=== PATIENT | female | born 1975 | race Caucasian/White ===

== ENCOUNTER 2017-09-30 16:26 | Emergency (ER) | payer BC, OTHER ==
[~2017-09-30] VITALS: Ht 160 cm; Wt 72.3 kg
[2017-09-30 16:29] VITALS: TEMP 37; Ht 160 cm; Wt 72.3 kg
[2017-09-30 16:59] VITALS: O2SAT 97
[2017-09-30 17:06] LABS: HEMATOCRIT 40.8 % (37-47); MEAN CELL VOLUME 90.7 fL (80-100); MEAN CORPUSCULAR HEMOGLOBIN 31.1 pg (25-34); MEAN CORPUSCULAR HGB CONC 34.3 g/dl (32-36); MEAN PLATELET VOLUME 9.7 fL (7.4-10.4); PLATELET COUNT 360 K/uL (130-400); RED CELL DISTRIBUTION WIDTH CV 13.7 % (11.5-14.5); WHITE BLOOD COUNT 9.98 K/uL (4.8-10.8)
--- NOTE | 2017-09-30 17:18 | EMERGENCY ROOM VISIT NOTE ---
History Report prepared by Rm: Humza Caballero Under the Supervision of: Dr. Tosin Ward D.O. First contact with patient: 16:54 Chief Complaint: CHEST PAIN Stated Complaint: SHARP LT SIDE PAIN, BLOOD WORK Nursing Triage Summary: Patient c/o sharp left upper abdominal/chest pain under ribs. Denies N/V/D Patient recently traveled to and from [facility]. Seen by Erica Kaplan PA-C and sent for evaluation. History of Present Illness The patient is a 42 year old female who presents to the Emergency Room with complaints of worsening left side chest pain starting this morning. She describes the pain as a piercing pain, and she states that the pain is worsened with bending over and deep breathing. The patient states that it was okay earlier in the morning, and she ate lunch and afterwards it was much worse. She notes that she went to her PCP this morning, and they thought it was musculoskeletal, though she states that she recently drove 15 hours, and she is worried about a blood clot. She has a history of colitis, though she states that this pain is different than usual. The patient states that she currently feels hot, and she states that she has been having some post nasal drip. She denies any nausea, vomiting, leg swelling, back pain, any thyroid problems, and any family history of heart disease at a young age. The patient states that she took two Tylenol for the pain, and it did not really help. She additionally notes that she had a root canal performed a week ago. Source of History: patient Onset: this morning Position: chest (left) Quality: other (piercing) Timing: worsening Modifying Factors (Worsening): other (bending over and deep breathing) Associated Symptoms: No nausea, No vomiting, No back pain Review of Systems See HPI for pertinent positives & negatives. A total of 10 systems reviewed and were otherwise negative. Past Medical & Surgical Medical Problems: (1) Dermatitis (2) Psoriatic arthropathy Surgical Problems: (1) History of dental surgery Social History Smoking Status: Never Smoker Marital Status: Occupation Status: employed Current/Historical Medications Scheduled Control Pills ( Control Pills), 1 TAB PO DAILY Allergies Coded Allergies: No Known Allergies (Verified , 09/30/17) Physical Exam Vital Signs Date Time Temp Pulse Resp B/P (MAP) Pulse Ox O2 Delivery O2 Flow Rate FiO2 09/30/17 20:42 66 17 145/84 98 09/30/17 19:28 70 09/30/17 16:59 98 Room Air 09/30/17 16:59 97 Room Air 09/30/17 16:33 Room Air 09/30/17 16:29 37.0 83 16 176/95 95 Room Air Physical Exam GENERAL: alert, well appearing, well nourished, no distress, non-toxic EYE EXAM: normal conjunctiva, PERRL and EOM's grossly intact OROPHARYNX: no exudate, no erythema, lips, buccal mucosa, and tongue normal and mucous membranes are moist NECK: supple, no nuchal rigidity, no adenopathy, non-tender LUNGS: Clear to auscultation. No wheezes rhonchi and rales. Normal chest wall mechanics HEART: no murmurs, S1 normal and S2 normal CHEST: Pain along the left costal margin. ABDOMEN: abdomen soft, non-tender, normo-active bowel sounds, no masses, no rebound or guarding. BACK: Back is symmetrical on inspection and there is no deformity, no midline tenderness, no CVA tenderness. SKIN: no rashes and no bruising UPPER EXTREMITIES: upper extremities are grossly normal. LOWER EXTREMITIES: No pitting edema. NEURO EXAM: Normal sensorium, cranial nerves II-XII grossly intact, normal speech, no gross weakness of arms, no gross weakness of legs. Medical Decision & Procedures ER Provider Diagnostic Interpretation: Radiology results have been interpreted by the radiologist and reviewed by me. CHEST ONE VIEW PORTABLE HISTORY: 42 years-old Female chest pain acute atypical chest pain COMPARISON: None available TECHNIQUE: Portable AP view of the chest FINDINGS: Cardiomediastinal and hilar silhouettes are within normal limits. There is no pneumothorax or pleural effusion. Subsegmental left basilar opacities are noted. No lobar airspace consolidation or overt pulmonary edema. The bones of the chest appear grossly intact. IMPRESSION: Subsegmental left basilar opacities favor atelectasis. The above report was generated using voice recognition software. It may contain grammatical, syntax or spelling errors. Electronically signed by: Jefferson Meeks M.D. 09/30/2017 5:16 PM Dictated Date/Time: 09/30/2017 5:[address] ANGIOGRAM OF THE CHEST CLINICAL HISTORY: Atypical chest pain. COMPARISON STUDY: Chest x-ray dated 09/30/2017. TECHNIQUE: Following the IV administration of 85 cc of Optiray 320, CT angiogram of the chest was performed from the upper abdomen to the thoracic inlet utilizing the pulmonary embolus protocol. Images are reviewed in the axial, sagittal, and coronal planes. 3-D MIPS images are created and assessed. IV contrast was administered without complication. A dose lowering technique was utilized adhering to the principles of ALARA. CT DOSE: 333.16 mGycm FINDINGS: Thyroid: Imaged portions of the thyroid gland are normal in size and attenuation. Thoracic aorta: The thoracic aorta is normal in caliber and demonstrates standard 3-vessel arch anatomy. No dissection is seen. Pulmonary vasculature: The pulmonary trunk is normal in caliber. There are no filling defects identified in main, lobar, or segmental pulmonary branches to suggest pulmonary embolus. Heart: The heart is normal in size and configuration, and without pericardial effusion. Lungs and pleural spaces: Evaluation of lung parenchyma is modestly degraded by motion artifact. No airspace consolidation or pleural effusion is identified. There is dependent atelectasis. The trachea and central airways are clear. Mediastinum: There is no mediastinal lymphadenopathy. Ciara: Clear. Axillae: There is no axillary lymphadenopathy. Upper abdomen: There are at least 5 low-attenuation hepatic lesions identified. The largest measures up to 3.3 cm. These are seen in the left lobe on images #4, #20, and #52 and in the right lobe on images #49 and #31. Punctate nonobstructing calculi are seen in the upper pole of the left kidney. Skeletal structures: No lytic or blastic bony lesions are seen. IMPRESSION: 1. There is no evidence of pulmonary embolus in the main, lobar, or segmental pulmonary arteries. 2. The lungs are clear. 3. There are least 5 low-attenuation hepatic lesions measuring up to 3.3 cm. These are pathologically indeterminant, and could potentially represent hemangiomas. Follow-up with a nonemergent contrast-enhanced MRI of the liver is recommended for further assessment. Electronically signed by: Shorty Kennedy M.D. 09/30/2017 6:35 PM Dictated Date/Time: 09/30/2017 6:30 PM Laboratory Results 09/30/17 15:45 09/30/17 15:45 Test 09/30/17 15:45 09/30/17 16:59 09/30/17 19:34 Red Blood Count 4.50 M/uL (4.2-5.4) Mean Corpuscular Volume 90.7 fL (80-100) Mean Corpuscular Hemoglobin 31.1 pg (25-34) Mean Corpuscular Hemoglobin Concent 34.3 g/dl (32-36) RDW Standard Deviation 45.0 fL (36.4-46.3) RDW Coefficient of Variation 13.7 % (11.5-14.5) Mean Platelet Volume 9.7 fL (7.4-10.4) Prothrombin Time 9.3 SECONDS (9.0-12.0) Prothromb Time International Ratio 0.9 (0.9-1.1) Activated Partial Thromboplast Time 25.0 SECONDS (21.0-31.0) Partial Thromboplastin Ratio 1.0 D-Dimer 760 ug/L FEU (0-500) Anion Gap 8.0 mmol/L (3-11) Est Creatinine Clear Calc Drug Dose 90.4 ml/min Estimated GFR () 109.4 Estimated GFR (Non- 94.4 BUN/Creatinine Ratio 16.8 (10-20) Calcium Level 9.0 mg/dl (8.5-10.1) Total Bilirubin 0.2 mg/dl (0.2-1) Aspartate Amino Transf (AST/SGOT) 16 U/L (15-37) Alanine Aminotransferase (ALT/SGPT) 31 U/L (12-78) Alkaline Phosphatase 83 U/L (45-117) Total Creatine Kinase 120 U/L (26-192) Creatine Kinase MB 2.0 ng/ml (0.5-3.6) Creatine Kinase MB Ratio 1.7 (0-3.0) Total Protein 7.8 gm/dl (6.4-8.2) Albumin 3.6 gm/dl (3.4-5.0) Globulin 4.2 gm/dl (2.5-4.0) Albumin/Globulin Ratio 0.9 (0.9-2) Bedside D-Dimer > 450 ng/mlFEU (0-450) Bedside Troponin I < 0.030 ng/ml (0-0.045) Laboratory results per my review. Medications Administered Medications (Trade) Dose Ordered Sig/Jakob Route Start Time Stop Time Status Last Admin Dose Admin Fentanyl Citrate (Fentanyl Inj) 50 mcg NOW STAT IV 09/30/17 17:33 09/30/17 17:34 DC 09/30/17 17:54 50 MCG Ketorolac Tromethamine (Toradol Inj) 30 mg NOW STAT IV 09/30/17 19:04 09/30/17 19:05 DC 09/30/17 19:21 30 MG Famotidine (Pepcid 20mg Iv Push) 20 mg ONE STAT IV 09/30/17 19:04 09/30/17 19:05 DC 09/30/17 19:25 20 MG ECG Per My Interpretation Indication: chest pain Rate (beats per minute): 72 Rhythm: sinus rhythm Findings: RBBB (borderline), no acute ischemic change, no ectopy, other ( Normal axis. No evidence for right heart strain.) ED Course 1653: The patient was evaluated in room A2. A complete history and physical exam was performed. The patient's outpatient office note was reviewed. 1732: Fentanyl 50mcg IV 1903: Famotidine 20mg IV, Toradol 30mg IV 1906: I reevaluated the patient, and I updated her on the results. 1934: Upon reevaluation, the patient is feeling better. I discussed the findings and the treatment plan with the patient. She verbalizes agreement and understanding. She was discharged home. Medical Decision Differential diagnosis: Etiologies such as cardiac ischemia, aortic dissection, pulmonary embolism, pneumonia, pneumothorax, musculoskeletal, infections, pericarditis, myocarditis , esophageal rupture, gastrointestinal, as well as others were entertained. Patient well-appearing here despite complaints, no risk factors for ACS and troponins 2 negative. Patient's d-dimer elevated however CT angiogram the chest was negative. No evidence of other vascular pathology or other acute infectious etiology. Discussed with patient pain may be from musculoskeletal strain, GERD, or pleurisy. Discussed with patient [id number] use of pain medications, adequate hydration, avoidance of acidic foods as a precaution. Discussed close follow-up with family doctor as a precaution particularly if pain persists as she may need additional cardiac testing. Discussed with her symptoms to watch and return to the emergency room for, she verbalized understanding was agreeable with plan. Patient felt mildly improved her following administration of Toradol, vital signs otherwise stable throughout. Mild hypertension noted here however likely related to pain and anxiety regarding situation. I do not suspect hypertensive urgency/emergency. Medication Reconcilliation Current Medication List: was personally reviewed by me Blood Pressure Screening Patient's blood pressure: Elevated blood pressure Blood pressure disposition: Elevated BP felt to be situational Impression Primary Impression: Non-cardiac chest pain Scribe Attestation The scribe's documentation has been prepared under my direction and personally reviewed by me in its entirety. I confirm that the note above accurately reflects all work, treatment, procedures, and medical decision making performed by me. Departure Information Dispostion Home / Self-Care Referrals No Doctor, Assigned (PCP) Forms Call Back Authorization, HOME CARE DOCUMENTATION FORM, IMPORTANT VISIT INFORMATION Patient Instructions [facility] Additional Instructions You may use Tylenol and ibuprofen as needed for pain. Please make sure drinking plenty of water. Did not take Motrin/Advil/Aleve on an empty stomach as it can irritate your stomach. Please follow-up with your family doctor as a precaution. If you have any worsening pain, develop trouble breathing, increased cough, fevers or chills, dizziness, you have any other new or concerning symptoms, please return the emergency room.
[2017-09-30 17:21] LABS: INR 0.9 (0.9-1.1)
[2017-09-30 17:24] LABS: ALBUMIN 3.6 gm/dl (3.4-5.0); CREATININE 0.78 mg/dl (0.60-1.20); POTASSIUM 3.8 mmol/L (3.5-5.1)
[2017-09-30 17:29] LABS: TOTAL PROTEIN 7.8 gm/dl (6.4-8.2)
[2017-09-30] MEDS ORDERED: FENTANYL CITRATE INJ 50 MCG/1 ML 2 ML VIAL IV STA (17:33)
[2017-09-30] MEDS ORDERED: OPTIRAY 320 IV PRN (17:45)
--- NOTE | 2017-09-30 18:37 | DIAGNOSTIC IMAGING REPORT ---
CT ANGIOGRAM OF THE CHEST CLINICAL HISTORY: Atypical chest pain. COMPARISON STUDY: Chest x-ray dated 09/30/2017. TECHNIQUE: Following the IV administration of 85 cc of Optiray 320, CT angiogram of the chest was performed from the upper abdomen to the thoracic inlet utilizing the pulmonary embolus protocol. Images are reviewed in the axial, sagittal, and coronal planes. 3-D MIPS images are created and assessed. IV contrast was administered without complication. A dose lowering technique was utilized adhering to the principles of ALARA. CT DOSE: 333.16 mGycm FINDINGS: Thyroid: Imaged portions of the thyroid gland are normal in size and attenuation. Thoracic aorta: The thoracic aorta is normal in caliber and demonstrates standard 3-vessel arch anatomy. No dissection is seen. Pulmonary vasculature: The pulmonary trunk is normal in caliber. There are no filling defects identified in main, lobar, or segmental pulmonary branches to suggest pulmonary embolus. Heart: The heart is normal in size and configuration, and without pericardial effusion. Lungs and pleural spaces: Evaluation of lung parenchyma is modestly degraded by motion artifact. No airspace consolidation or pleural effusion is identified. There is dependent atelectasis. The trachea and central airways are clear. Mediastinum: There is no mediastinal lymphadenopathy. Ciara: Clear. Axillae: There is no axillary lymphadenopathy. Upper abdomen: There are at least 5 low-attenuation hepatic lesions identified. The largest measures up to 3.3 cm. These are seen in the left lobe on images #4, #20, and #52 and in the right lobe on images #49 and #31. Punctate nonobstructing calculi are seen in the upper pole of the left kidney. Skeletal structures: No lytic or blastic bony lesions are seen. IMPRESSION: 1. There is no evidence of pulmonary embolus in the main, lobar, or segmental pulmonary arteries. 2. The lungs are clear. 3. There are least 5 low-attenuation hepatic lesions measuring up to 3.3 cm. These are pathologically indeterminant, and could potentially represent hemangiomas. Follow-up with a nonemergent contrast-enhanced MRI of the liver is recommended for further assessment. Electronically signed by: Shorty Kennedy M.D. 09/30/2017 6:35 PM Dictated Date/Time: 09/30/2017 6:30 PM
[2017-09-30] MEDS ORDERED: FAMOTIDINE 20MG/5ML IV PUSH IV STA (19:04)
[2017-09-30] MEDS ORDERED: KETOROLAC TROMETHAMINE 30 MG/ML VIAL IV STA (19:04)
[2017-09-30] MEDS ORDERED: BCPILLS PO (19:39)
[2017-09-30 20:42] VITALS: BP 145/84; PULSE 66; O2SAT 98
== END 2017-09-30 20:30 | disposition home or self-care (01) ==
LOC: C.EDB 16:27 → C.EDA 20:30
DX: R07.89 Other chest pain (principal); K52.9 Noninfective gastroenteritis and colitis, unspecified; L40.59 Other psoriatic arthropathy; Z79.3 Long term (current) use of hormonal contraceptives